=== PATIENT | female | born 1995 | race African-American/Black ===

== ENCOUNTER 2019-07-05 19:03 | Emergency (ER) | payer OTHER, SELFPAY ==
--- NOTE | ~2019-07-05 | XR_ITS ---
XR chest 2V 07/05/2019 19:21 Indication: Cough and dyspnea Procedure: 2 view chest Comparison: No prior studies for comparison. Findings: There is right middle lobe airspace disease, compatible with pneumonia. Heart size normal. Left lung clear. No pleural effusion, edema or pneumothorax. Impression: 1: Right middle lobe pneumonia. Reviewed, dictated and finalized at location A. [employer] Impression: 1: Right middle lobe pneumonia.
[2019-07-05 19:17] VITALS: BP 122/78; PULSE 103; RESP 20; TEMP 37.2; O2SAT 98
--- NOTE | 2019-07-05 19:27 | ED.GENADULT ---
HPI - General Adult General Chief complaint: Upper Respiratory Infection Stated complaint: cough/nose bleed Time Seen by Provider: 07/05/19 19:27 Source: patient and RN notes reviewed Mode of arrival: ambulatory Limitations: no limitations History of Present Illness HPI narrative: 23-year-old -[place] female presents with complaints of dry cough for the past 4-5 weeks. Tessalon Perles, Claritin, and intermittently using Flonase, without relief. Cough is persistent, worse when she lies down. Productive cough (yellow phlegm). Feels ill. Chest feels Heavy. Intermittently having short of breath when ambulating and at rest. Denies high fever or chills. Exacerbating factors smoke exposure (intermittently has 2nd hand). No nausea, vomiting, and abdominal pain. Denies chest pain, wheezing, coughing up blood, difficulty swallowing, jaw pain, dental pain, facial pain, foreign body sensation, and rash. SoLarie denies being or even having initial menstrual cycle at this time. Will be seeing a doctor on 07/11/19 for evaluation of menstrual cycle. Some parts of this dictation were generated by voice recognition software and may contain typographical and/or grammatical inaccuracies. Related Data Allergies Allergy/AdvReac Type Severity Reaction Status Date / Time No Known Allergies Allergy Verified 06/12/19 13:48 Review of Systems Review of Systems: Narrative: CONSTITUTIONAL: Denies fever, chills, sweats. EYES: Denies visual changes, redness, discharge. ENT: Denies rhinorrhea, congestion, sore throat, otalgia. CARDIOVASCULAR: Denies chest pain, palpitations, edema. RESPIRATORY: Denies wheezing. Complains of dyspnea, persistent dry cough, intermittent productive cough. GASTROINTESTINAL: Denies abdominal pain, nausea, vomiting, diarrhea. GENITOURINARY: Denies dysuria, hematuria, abnormal discharge. SKIN: SKIN: Denies rash or itching. MUSCULOSKELETAL: Denies acute back pain, joint pain, or myalgia. NEUROLOGIC: Denies numbness or focal weakness. PSYCHIATRIC: Denies anxiety or depression. All systems reviewed & are unremarkable except as noted in HPI and below PMFSH Past Medical History Medical History (Updated 07/08/19 @ 19:57 by TESSA Guzman) Bronchitis History of strep sore throat Pneumonia Surgical History Surgical History (Updated 07/08/19 @ 20:00 by TESSA Guzman) History of arthroplasty of left hip Social History Social History Gender identity (if verbalized by the patient): Female Comments At time of signature, agree with nurse past medical, surgical, social, and family history. There is no relevant family history pertinent to the presenting complaint. Exam Narrative: Exam Narrative: GENERAL: This is a well-nourished, well-developed patient, in no apparent distress. Talking in full sentences without deficit and ambulate with steady gait without dyspnea. HEAD: normocephalic, atraumatic. EYES: PERRL. Sclera clear/white. Vision is grossly intact. THROAT: Mucous membranes moist, posterior pharynx clear. NECK: Neck supple, non-tender without lymphadenopathy, masses or thyromegaly. CARDIOVASCULAR: Regular rate and rhythm without murmurs, gallops, or rubs. RESPIRATORY: Clear to auscultation with fair-gas exchange in all cruz. Breath sounds equal bilaterally. No wheezes, rales, or rhonchi. GASTROINTESTINAL: Abdomen soft, non-tender, nondistended. Bowel sounds are active. No hepato-splenomegaly, or palpable masses. No guarding. SKIN: warm, intact with no suspicious lesions or rash, good texture and turgor. NEURO: awake, alert, and oriented to person, place and time. There were no obvious focal neurologic abnormalities. EXTREMITIES: No clubbing, cyanosis, or edema. BACK: Nontender without deformity or crepitance. No flank tenderness on palpation. [place] Coma Scale Eye Opening: Spontaneous 4 Margaret Coma Scale Motor: [place]
[2019-07-05 19:50] VITALS: PULSE 85; RESP 20; O2SAT 98
== END 2019-07-05 19:50 | disposition home or self-care (01) ==
PROVIDERS: Emergency Provider Nurse Practitioner Family
DX: J18.1 Lobar pneumonia, unspecified organism (principal)
CPT/HCPCS: 71046; 99213; G0463